=== PATIENT | female | born 1990 | race Caucasian/White ===

== ENCOUNTER 2020-12-21 14:44 | Emergency (ER) | payer BC, OTHER ==
[2020-12-21 14:58] VITALS: BP 108/71; PULSE 86; TEMP 97.8; BMI 26.9
[2020-12-21 17:38] LABS: PH,URINE 5.5 (5.0-8.0); URINE APPEARANCE CLEAR; URINE BILIRUBIN NEGATIVE (NEGATIVE); URINE COLOR YELLOW; URINE GLUCOSE (UA) NEGATIVE (NEGATIVE); URINE KETONE NEGATIVE (NEGATIVE); URINE LEUK ESTERASE NEGATIVE (NEGATIVE); URINE NITRITE NEGATIVE (NEGATIVE); URINE PROTEIN NEGATIVE (NEGATIVE); URINE UROBILINOGEN 0.2 mg/dL (0.2-1.0)
== END 2020-12-21 19:31 | disposition home or self-care (01) ==
LOC: JER 14:44
DX: O20.0 Threatened abortion (principal); Z3A.01 Less than 8 weeks gestation of pregnancy
CPT/HCPCS: 36415; 76817-TC; 81003; 84702; 87086; 99284-25

== ENCOUNTER 2025-01-29 11:31 | Emergency (ER) | payer OTHER ==
[2025-01-29 11:38] VITALS: BP 92/70; PULSE 90; RESP 18; TEMP 97.9; BMI 27.1
[2025-01-29] MEDS ORDERED: ACETAMINOPHEN 500 MG TABLET (FP) ONE (12:06)
[2025-01-29] MEDS: ACETAMINOPHEN 500 MG TABLET (FP) PO ONE (12:18)
[2025-01-29] MEDS: METHOCARBAMOL 500 MG TABLET PO ONE (12:40)
[2025-01-29] MEDS ORDERED: METHOCARBAMOL 500 MG TABLET ONE (12:41)
[2025-01-29] MEDS ORDERED: IBUPROFEN 600 MG TABLET (FP) PO ONE (12:41)
[2025-01-29] MEDS: IBUPROFEN 600 MG TABLET (FP) PO ONE (12:50)
== END 2025-01-29 13:00 | disposition home or self-care (01) ==
LOC: JERFT 11:31
DX: S29.012A Strain of muscle and tendon of back wall of thorax, initial encounter (principal); V87.7XXA Person injured in collision between other specified motor vehicles (traffic), initial encounter; Y92.410 Unspecified street and highway as the place of occurrence of the external cause
CPT/HCPCS: 84703; 99283-25